=== PATIENT | female | born 2000 | race African-American/Black ===

== ENCOUNTER 2021-11-26 07:36 | Emergency (ER) | payer MEDICAID, OTHER ==
[~2021-11-26] VITALS: Ht 160 cm; Wt 91.2 kg
[2021-11-26] MEDS ORDERED: SODIUM CHLORIDE 0.9% 2,000 ML IV ONE (08:30)
[2021-11-26] MEDS ORDERED: ONDANSETRON HCL 4 MG/2 ML VIAL IV ONE (08:30)
[2021-11-26 08:44] LABS: Basophils # (auto) 0 10 ^3/uL (0-0.2); Basophils % (auto) 0.6 % (0.0-2.0); Eosinophils # (auto) 0 10 ^3/uL (0-0.8); Eosinophils % (auto) 0.3 % (0.0-7.0); Hematocrit 39.6 % (36.0-46.0); Hemoglobin 13.9 g/dL (12.2-16.2); Lymphocytes # (auto) 1.2 10 ^3/uL (0.4-5.4); Lymphocytes % (auto) 21.2 % (10.0-50.0); Mean Corpuscular Hemoglobin 30.6 pg (28.0-32.0); Mean Corpuscular Hgb Conc. 35.1 g/dL (32.0-36.0); Mean Corpuscular Volume 87.2 fL (80.0-100.0); Monocytes # (auto) 0.4 10 ^3/uL (0-1.3); Monocytes % (auto) 7.9 % (0.0-12.0); Neutrophils # (auto) 3.8 10 ^3/uL (1.6-8.6); Nucleated Red Blood Cells % 0.6 %; Red Blood Cells 4.54 10^6/uL (4.0-5.20); White Blood Cell 5.5 10^3/uL (4.4-10.8)
[2021-11-26 08:58] LABS: Amphetamine Screen, Urine NEGATIVE (NEGATIVE); Barbiturate Scree,Urine NEGATIVE (NEGATIVE); Benzodiazephine Screen, Urine NEGATIVE (NEGATIVE); Cannabinoid Screen, Urine POSITIVE (NEGATIVE); Cocaine Screen, Urine NEGATIVE (NEGATIVE); Opiate Scree,Urine NEGATIVE (NEGATIVE); Phencyclidine Screen, Urine NEGATIVE (NEGATIVE)
[2021-11-26 09:01] LABS: BUN/Creatinine Ratio 10.2; Calcium 9.1 mg/dL (8.5-10.1); Potassium 3.2 mmol/L (3.5-5.1)
[2021-11-26 09:03] LABS: Urine Bacteria NONE SEEN /hpf (None Seen); Urine Blood Negative /uL (Negative); Urine Hyaline Cast FEW /lpf (0 - 2); Urine Mucus FEW (None Seen); Urine WBC 2 /hpf (0 - 5)
[2021-11-26] MEDS ORDERED: ONDA-144 PO (09:38)
[2021-11-26] MEDS ORDERED: POTASSIUM CHL 20 Meq TABLET PO ONE ×2 (09:45)
[2021-11-26] MEDS ORDERED: SODIUM CHLORIDE 0.9% 1,000 ML IV ONE (09:45)
[2021-11-26 09:54] VITALS: BP 114/61
== END 2021-11-26 09:56 | disposition home or self-care (01) ==
LOC: ER 07:36
DX: O21.8 Other vomiting complicating pregnancy (principal); F41.9 Anxiety disorder, unspecified; F12.10 Cannabis abuse, uncomplicated; Z79.899 Other long term (current) drug therapy; Z3A.18 18 weeks gestation of pregnancy
CPT/HCPCS: 36415; 80048; 80307; 81001; 84484; 85025; 96361; 96374; 99283; J2405

== ENCOUNTER 2022-04-20 16:06 | Observation (INO) | payer MEDICAID ==
[~2022-04-20 16:06] MED LIST: ONDA-144 PO
== END 2022-04-20 18:32 | disposition home or self-care (01) ==
LOC: LDRP 16:06 → UNDOADMOB 16:06 → LDRP 16:26
PROVIDERS: ADMIT Obstetrics & Gynecology; ATTEND Obstetrics & Gynecology
DX: O36.5930 Maternal care for other known or suspected poor fetal growth, third trimester, not applicable or unspecified (principal); Z3A.38 38 weeks gestation of pregnancy
CPT/HCPCS: 59025; 76818; 81002; 94760; G0378

== ENCOUNTER 2022-04-23 15:08 | Observation (INO) | payer MEDICAID | END 2022-04-23 16:47 | disposition home or self-care (01) | LOC: LDRP 15:08 | PROVIDERS: ADMIT Obstetrics & Gynecology; ATTEND Obstetrics & Gynecology | DX: O26.893 Other specified pregnancy related conditions, third trimester (principal); R10.9 Unspecified abdominal pain; O36.5930 Maternal care for other known or suspected poor fetal growth, third trimester, not applicable or unspecified; O42.92 Full-term premature rupture of membranes, unspecified as to length of time between rupture and onset of labor; Z3A.38 38 weeks gestation of pregnancy; Z87.891 Personal history of nicotine dependence | CPT/HCPCS: 59025; 81002; 94760; G0378 ==

== ENCOUNTER 2022-04-30 00:29 | Observation (INO) | payer MEDICAID ==
[~2022-04-30] VITALS: Ht 160 cm; Wt 99.8 kg
[2022-04-30] MEDS ORDERED: LACTATED RINGER'S 1,000 ML IV ONE (01:30)
[2022-04-30] MEDS ORDERED: BUTORPHANOL TARTRATE 2 MG/1 ML VIAL IV ONE (01:30)
[2022-04-30] MEDS ORDERED: PREN-96 PO (01:59)
[2022-04-30 02:06] VITALS: BP 121/66
== END 2022-04-30 03:36 | disposition home or self-care (01) ==
LOC: LDRP 00:29
PROVIDERS: ADMIT Obstetrics & Gynecology; ATTEND Obstetrics & Gynecology
DX: O62.9 Abnormality of forces of labor, unspecified (principal); Z3A.39 39 weeks gestation of pregnancy
CPT/HCPCS: 59025; 84112; 94762; 96361; 96374; G0378; J0595; Q0114; 96360

== ENCOUNTER 2023-11-23 07:02 | Emergency (ER) | payer MEDICAID ==
[~2023-11-23] VITALS: Ht 160 cm; Wt 90.7 kg
[~2023-11-23 07:02] MED LIST changes: +AMOX500C2 PO; +PREN-96 PO
[2023-11-23 07:32] VITALS: BP 137/91; PULSE 87; RESP 16; TEMP 98.4; O2SAT 100
[2023-11-23] MEDS: methylPREDNISolone SOD SUCC 125 MG/2 ML VL IM ONE (07:58)
[2023-11-23] MEDS: cefTRIAXone SOD 1,000 MG VL IM ONE (07:58)
[2023-11-23] MEDS ORDERED: LIDO2SOL26 MT (08:13)
[2023-11-23] MEDS ORDERED: PRED20TA2 PO (08:13)
== END 2023-11-23 08:20 | disposition home or self-care (01) ==
LOC: ER 07:02
DX: J03.90 Acute tonsillitis, unspecified (principal); H66.92 Otitis media, unspecified, left ear
CPT/HCPCS: 96372; 99284; J0696; J2919